=== PATIENT | male | born 1985 | race Caucasian/White ===

== ENCOUNTER 2018-07-11 21:16 | Emergency (ER) | payer SELFPAY ==
[~2018-07-11] VITALS: Ht 172.7 cm; Wt 100.7 kg
[2018-07-11 21:23] VITALS: BP 141/76
== END 2018-07-11 21:53 | disposition home or self-care (01) ==
LOC: ER 21:25
DX: K40.90 Unilateral inguinal hernia, without obstruction or gangrene, not specified as recurrent (principal); K58.9 Irritable bowel syndrome, unspecified; F32.9 Major depressive disorder, single episode, unspecified; F41.9 Anxiety disorder, unspecified
CPT/HCPCS: Z7502